=== PATIENT | male | born 1970 | race Caucasian/White ===

== ENCOUNTER 2023-12-18 16:16 | Outpatient (CLI) | payer OTHER, SELFPAY ==
[2023-12-18 17:04] LABS: Basophils # 0.1 K/mm3 (0-0.2); Basophils % 0.9 % (0.1-2.0); Eosinophils # 0.4 K/mm3 (0.0-0.4); Eosinophils % 3.7 % (0.1-12.0); Hematocrit 42.2 % (42.0-52.0); Hemoglobin 14.3 g/dL (14.1-18.0); Lymphocytes # 3.4 K/mm3 (0.7-4.5); Lymphocytes % 36.6 % (10-50); Mean Corpuscular HGB Conc 33.8 g/dL (31.8-35.4); Mean Corpuscular Hemoglobin 29.4 pg (27.0-31.2); Mean Corpuscular Volume 86.9 fl (80-94); Mean Platelet Volume 7.5 fl (7.4-10.4); Monocytes # 0.4 K/mm3 (0.1-1.0); Monocytes % 4.6 % (1.7-9.3); Neutrophils # 5.1 K/mm3 (1.8-7.8); Neutrophils % 54.3 % (37.0-80.0); Platelet Count 255 K/mm3 (142-424); Red Blood Count 4.86 M/mm3 (4.60-6.20); Red Cell Distribution Width 13.6 % (11.5-17.5); White Blood Count 9.3 K/mm3 (4.8-10.8)
[2023-12-18 17:21] LABS: Hemoglobin A1C 5.7 % (4.0-6.0)
[2023-12-18 17:55] LABS: Alanine Aminotransferase 28 U/L (12-78); Albumin Level 4.1 g/dl (3.5-5.0); Alkaline Phosphatase 108 U/L (38-126); Anion Gap 10.8 mEq/L (5-15); Aspartate Amino Transferase 32 U/L (17-59); Bilirubin,Direct 0.1 mg/dl (0.0-0.4); Bilirubin,Indirect 0.6 mg/dL (0.0-0.9); Bilirubin,Total 0.7 mg/dl (0.2-1.3); Bilirubin,Unconjugated 0.6 mg/dL (0.0-1.1); Blood Urea Nitrogen 18 mg/dl (9-20); Calcium 8.9 mg/dl (8.4-10.2); Carbon Dioxide 28 mmol/L (22.0-30.0); Chloride 106 mmol/L (98-107); Chol/HDL Ratio 6.2 (1-3.5); Cholesterol 203 mg/dl (140-200); Estimated Glomerular Filt Rate 64 ml/min (>60); GFR (African American) 77 ML/MIN (>60); Glucose 92 mg/dl (74-100); HDL Cholesterol 33 mg/dl (40-60); Magnesium 2.1 mg/dl (1.6-2.3); Potassium 3.8 mmoL/L (3.5-5.1); Sodium 141 mmol/L (136-145); Total Protein,Serum 6.9 g/dl (6.3-8.2); Triglycerides 243 mg/dl (30-150); VLDL Cholesterol 49 mg/dL (0-40)
[2023-12-18 18:08] LABS: Direct LDL Cholesterol 119.01 mg/dL (100-129)
[2023-12-18 18:13] LABS: Free T4 (Free Thyroxine) 0.86 ng/dl (0.78-2.19)
[2023-12-18 18:26] LABS: Thyroid Stimulating Hormone 1.77 uIU/mL (0.465-4.68)
== END 2023-12-18 23:59 ==
LOC: LAB 16:18
PROVIDERS: PCP Nurse Practitioner Family; Visit Provider Internal Medicine
DX: R07.9 Chest pain, unspecified (principal); R06.00 Dyspnea, unspecified; R42 Dizziness and giddiness; E78.5 Hyperlipidemia, unspecified; I10 Essential (primary) hypertension; G47.30 Sleep apnea, unspecified; E66.9 Obesity, unspecified; Z68.41 Body mass index [BMI] 40.0-44.9, adult
CPT/HCPCS: 36415; 80048; 80061; 80076; 83036; 83735; 84439; 84443; 85025; 93270

== ENCOUNTER 2024-01-13 11:43 | Outpatient (CLI) | payer OTHER, SELFPAY ==
--- NOTE | 2024-01-13 | CA_ITS ---
APPROVED REPORT Exam: Pharmacologic Technologist: Daniela Witt, Ht: 5 ft 11 in Wt: 314 lbs BSA: 2.55 m2 HR: 57 bpm BP: 141/82 mmHg Rhythm: NSR Medical History Medical History: HTN Medications: Losartan,,,,, HCTZ,,,,, SilDENAFIL,,,,, Allergies: No known drug allergies Cardiac Risk Factors: HTN Stress Test Details Test: LEXISCAN HR Resting HR: 58 bpm Max Heart Rate (APMHR): 168 bpm Max HR Achieved: 94 bpm Target HR (85% APMHR): 143 bpm % of APMHR: 56 Recovery HR: 72 bpm BP Resting BP: 141/82 mmHg Max BP: 146/75 mmHg Recovery BP: 146.0/75.0 mmHg ECG Resting ECG: Normal sinus rhythm Stress ECG: No significant ST changes Arrhythmia: None Clinical Exercise duration: 04:02 min Highest Stage Achieved: Stress ECG Conclusion Patient developed dyspnea and lightheadedness. Ectopy: None ST changes: None Conclusion: Unremarkable Lexiscan stress test. Myoview images reported separately. Test Summary REST 11:22 . . 58 . 141/ 82 . . Stage 1 01:00 . . 88 . . . . Stage 2 01:00 . . 83 . . . . Stage 3 01:00 . . 83 . 128/ 67 . . Stage 4 01:00 . . 75 . 135/ 75 . . Stage 4 01:02 . . 78 . 135/ 75 . Stop exercise at 04:02 RECOVERY 01:00 . . 71 . . . . RECOVERY 01:41 . . 78 . 146/ 75 . . Electronically signed by : Berna Degroot MD 01/14/2024 11:36:10
--- NOTE | 2024-01-13 11:44 | NM_ITS ---
APPROVED REPORT Exam: Nuclear Stress Test Indication: HTN, TOB USE, C.P., PALPATATIONS Patient Location: Outpatient Stress Tech: Daniela Witt NM Tech:Latha Toussaint, ARRT, RT (R)(N) Ht: 5 ft 10 in Wt: 315 lbs HR: 58 bpm BP: 141/82 mmHg BSA: 2.53 m2 TID: 1.35 BMI: 45.1 History: HTN, TOB USE, C.P., PALPATATIONS Procedure: Patient received 0.4 mg of intravenous Lexiscan, resting heart rate 58 bpm, resting blood pressure 141/82 mmHg, with Lexiscan maximum heart rate achieved was 94 bpm which is % of the maximum predicted heart rate and blood pressure was 146/75 mmHg. With Lexiscan, patient denied any complaint of chest pain. Cardiac Stress and Resting SPECT Images: Cardiac Stress and Resting SPECT images were obtained using technetium 99m Myoview 30.9 mCi stress and 10.70 mCi at rest. Resting and stress imaging in supine and prone positions demonstrate a medium sized, moderate, predominantly fixed perfusion defect in the basal to mid inferior LV wall. There is a region of reversibility towards the mid inferior LV wall. There is also increased transient ischemic dilatation ratio (TID 1.35), suggestive of possible multivessel disease or balanced ischemia. Gated imaging demonstrates mild reduction in global LV systolic function. There is moderate hypokinesis of the basal inferior LV wall. LVEF is calculated at 48%. Conclusion: Medium sized, moderate, predominantly fixed perfusion defect in the basal to mid inferior LV wall. There is a region of reversibility towards the mid inferior LV wall. There is also increased transient ischemic dilatation ratio (TID 1.35), suggestive of possible multivessel disease or balanced ischemia. Gated imaging demonstrates mild reduction in global LV systolic function. There is moderate hypokinesis of the basal inferior LV wall. LVEF is calculated at 48%. Electronically signed by : Berna Degroot MD 01/15/2024 13:07:48
--- NOTE | 2024-01-13 12:24 | CA_ITS ---
APPROVED REPORT EXAM: Comprehensive 2D, Doppler, and color-flow Echocardiogram Asset Protection Officer: Jeannie Pacheco RDCS Ht: 5 ft 11 in Wt: 314lbs BSA: 2.55 BP: 152/88 mmHg Indications: SOA, HTN, ELAINE M-Mode Dimensions RVDd 1.61 cm (0.9-2.6) LA Diam 4.44 cm (1.9-4.0) LVDd 6.46 cm (3.5-5.7) LVDs 4.16 cm (3.5-5.7) IVSd 1.01 cm (0.6-1.1) PWd 0.77 cm (0.6-1.1) EF (Teich) 63.90% FS 35.60% EDV (Teich) 213.00 mL ESV (Teich) 76.80 mL LV Diastology E Decel Time 210 (160-240 msec) E/A Ratio 1.0 Mitral Valve MV E Max Ryne. 63.0 (40-130 cm/s) MV A Velocity 60.0 (40-130 cm/s) E/A Ratio 1.04 MV PHT 62.0 ms Left Ventricle The left ventricle is normal size. The left ventricular systolic function is normal. The left ventricular ejection fraction is within the normal range. There is increased LV wall thickness. There is normal LV segmental wall motion. The left ventricular diastolic function is normal. LVEF is 55%. Right Ventricle Right ventricle is mildly dilated. Right ventricle is mildly hypokinetic. Atria The left atrium size is normal. The right atrium size is normal. There is no Doppler evidence of interatrial shunt. Aortic Valve The aortic valve opens well. There is no aortic valvular stenosis. No aortic regurgitation is present. Mitral Valve The mitral valve is normal in structure. No evidence of mitral valve stenosis. There is no mitral valve regurgitation noted. Tricuspid Valve The tricuspid valve leaflets are thin and pliable. Trace tricuspid regurgitation. There is insufficient TR jet to estimate RVSP. Pulmonic Valve The pulmonary valve is normal in structure. Trace pulmonic regurgitation. Great Vessels The aortic root is normal in size. The ascending aorta is normal in size. IVC is normal in size and collapses >50% with inspiration. Pericardium There is no pericardial effusion. Other Information Study Quality: Technically Difficult Conclusion Technically difficult study due to poor accoustic windows. Normal LV systolic function. Mild RV dilation with mild reduction in RV systolic function. No significant valvular stenosis or regurgitation. Electronically signed by : Berna Degroot MD 01/14/2024 23:39:41
[2024-01-13] MEDS: SODIUM CHLORIDE 0.9% 10ML SYR (RAD ONLY) 10 ML IV ×2 (13:52)
[2024-01-13] MEDS: ISOTOPE MYOVIEW (PER STUDY) 1 DOSE IV (13:52)
[2024-01-13] MEDS: REGADENOSON 0.4MG/5ML SYRINGE 0.400000000000000022 MG IV (13:52)
== END 2024-01-13 23:59 ==
LOC: RAD 11:44
PROVIDERS: PCP Nurse Practitioner Family; Visit Provider Internal Medicine
DX: R07.9 Chest pain, unspecified (principal); R06.00 Dyspnea, unspecified; R42 Dizziness and giddiness; E66.9 Obesity, unspecified; E78.5 Hyperlipidemia, unspecified; I10 Essential (primary) hypertension; G47.30 Sleep apnea, unspecified; Z68.41 Body mass index [BMI] 40.0-44.9, adult
CPT/HCPCS: 78452; 93017; 93018; 93306; A9502; J2785

== ENCOUNTER 2024-01-23 22:24 | Observation (INO) | payer OTHER, SELFPAY ==
[2024-01-23 22:42] VITALS: BP 160/81; PULSE 71; O2SAT 98
--- NOTE | 2024-01-23 22:48 | ECG_ITS ---
APPROVED REPORT Exam: Resting ECG HR:64 bpm ECG Measurements Heart Rate 64 AXES FL 157 P 61 QRSd 90 QRS 37 QT 390 T 40 QTc 400 Conclusion SINUS RHYTHM NORMAL ECG UNCONFIRMED REPORT Electronically signed by : ADEN LYONS, 01/24/2024 03:49:48
[2024-01-23 22:55] VITALS: BP 160/81; PULSE 71; RESP 16; O2SAT 96; BMI 43.7
[2024-01-23 23:01] VITALS: BP 133/65; PULSE 71; O2SAT 98
--- NOTE | 2024-01-23 23:03 | ED_ITS ---
Discharge Plan Disposition Patient Disposition: Admitted Clinical Impressions Clinical Impression: Chest pain Discharge ED Provider: Luis Alberto Blackwell General Adult HPI General Chief complaint: Recheck/Abnormal Lab/Rx Stated complaint: pressure in his head Time Seen by Provider: 01/23/24 23:02 Mode of Arrival: Ambulatory Source of Information: Patient Limitations: No Limitations Description of Symptoms (Recalled from ER Triage Doc. by RN): pt states he was notified by Dr. Welch's office today that he failed his chemical stress test from a few weeks ago. He saw his pcp in office who spoke with . The pt was instructed to come in for observation tonight so that could cath him first thing in the morning. pt denies any symptoms at this time. History of Present Illness HPI narrative: 53-year-old male with history of hypertension, obesity, hyperlipidemia presents for further evaluation. He reports that he was seen by cardiology about a month ago and recently had a stress test that he reports was abnormal. He had chest pain/fluttering earlier today, approximately 9 hours ago. He went to his PCP where an EKG was performed. Per patient, his PCP had a discussion with cardiology who recommended he be seen in the ED for evaluation. Patient currently reports that his chest pain has been gone for some time, he has no headache or any other symptoms. He denies any history of stents. Related Data Home Medications Medication Instructions Recorded Confirmed hydrochlorothiazide 25 mg tablet mg PO 12/18/23 12/18/23 losartan 50 mg tablet mg PO 12/18/23 12/18/23 sildenafil 50 mg tablet 50 mg PO DAILY PRN 12/18/23 12/18/23 Previous Rx's Medication Instructions Recorded metoprolol succinate 25 mg 25 mg PO QDAY #90 tabs 12/18/23 tablet,extended release 24 hr Allergies Allergy/AdvReac Type Severity Reaction Status Date / Time No Known Allergies Allergy Verified 12/18/23 15:56 [facility] Disclaimer: The information contained in this section may have been updated after the patient was seen, as this information can be updated by other users. Medical History (Updated 01/24/24 @ 00:31 by Luis Alberto Blackwell MD) Sleep apnea Deviated septum HTN (hypertension) Surgical History (Updated 12/18/23 @ 15:59 by Concepción Nolasco) History of hernia surgery H/O knee surgery H/O adenoidectomy Social History (Updated 12/18/23 @ 16:01 by Concepción Nolasco) Smoking Status: Never smoker second hand exposure: No alcohol intake: never substance use type: denies use current occupational status: employed Travel in the last 8 weeks: Inside the [place] ROS Obtained: Yes All systems reviewed & no additional complaints except as documented Physical Exam General General appearance: alert, in no apparent distress and obese Head Head exam: atraumatic and normocephalic Eye Eye exam: Present normal appearance, PERRL and EOMI ENT ENT exam: Present normal oropharynx and normal external ear exam Neck Neck exam: Present normal inspection and full ROM Chest Chest inspection: Present normal inspection and symmetric chest wall rise; Absent tenderness Respiratory Respiratory exam: Present normal lung sounds bilaterally; Absent respiratory distress Cardiovascular Cardiovascular exam: Present regular rate and normal rhythm Abdominal Exam Abdominal exam: Present soft; Absent distention, tenderness or guarding Extremities Exam Extremities exam: Present normal inspection; Absent edema or joint swelling Back Exam Back exam: Present normal inspection; Absent tenderness Neurological Exam Neurological exam: Present alert and oriented X3; Absent motor sensory deficit Psychiatric Psychiatric exam: Present normal affect and normal mood Skin Skin exam: Present warm, dry and normal color Lymphatic Lymphatic Findings: no adenopathy Medical Decision Making Medical Records Medical records reviewed: Yes I reviewed the patient's medical records. Hardeep Inquiry Pt receiving controlled substance: No Hardeep was queried for this patient: No Vital Signs: 01/23/24 22:42 01/23/24 22:55 01/23/24 23:01 Temperature Temperature Source Pulse Rate 71 71 Pulse Rate [Left] 71 Respiratory Rate 16 Blood Pressure 160/81 H 133/65 Blood Pressure [Right Arm] 160/81 H Blood Pressure Mean 110 87 Blood Pressure Mean [Right Arm] 107 Blood Pressure Source [Right Arm] Automatic Cuff Blood Pressure Position [Right Arm] Sitting 02 Sat by Pulse Oximetry 98 96 98 Oxygen Delivery Method Room Air 01/23/24 23:58 Temperature 98.4 F Temperature Source Oral Pulse Rate 73 Pulse Rate [Left] Respiratory Rate 16 Blood Pressure 149/82 H Blood Pressure [Right Arm] Blood Pressure Mean Blood Pressure Mean [Right Arm] Blood Pressure Source [Right Arm] Blood Pressure Position [Right Arm] 02 Sat by Pulse Oximetry Oxygen Delivery Method Lab Data Lab results reviewed: Yes I reviewed the patient's lab results. Lab Results 01/23/24 22:52: WBC 9.0, RBC 4.91, Hgb 14.0 L, Hct 43.1, MCV 87.7, MCH 28.6, MCHC 32.6, RDW 13.6, Plt Count 233, MPV 7.5, Neut % (Auto) 48.7, Lymph % (Auto) 38.7, [place] % (Auto) 5.3, Eos % (Auto) 5.4, Baso % (Auto) 1.9, Neut # (Auto) 4.4, Lymph # (Auto) 3.5, [place] # (Auto) 0.5, Eos # (Auto) 0.5 H, Baso # (Auto) 0.2, Sodium 141, Potassium 3.5, Chloride 108 H, Carbon Dioxide 32 H, Anion Gap 4.5 L, BUN 19, Creatinine 1.30 H, Estimated Creat Clear 71, Estimated GFR 58 L, Est GFR ( Amer) 70, Glucose 121 H, Calcium 9.3, Total Bilirubin 0.9, AST 39, ALT 31, Alkaline Phosphatase 90, Troponin I < 0.01, Total Protein 7.0, Albumin 4.0, Globulin 3.0, Albumin/Globulin Ratio 1.3 01/23/24 22:52 01/23/24 22:52 Orders (Tests/Meds): ORDERS Category Date Time Status Cardiology Consult [Consult to Cardiology] [CONS] Cons 01/23/24 23:44 Active Routine CXR --portable [XR chest portable] Stat Exams 01/23/24 23:10 Completed CBC w/Auto Diff [Complete Blood Count Auto Diff] Stat Lab 01/23/24 22:52 Completed CMP [Comprehensive Metabolic Panel] Stat Lab 01/23/24 22:52 Completed Troponin I Q3H Lab 01/23/24 22:52 Completed Troponin I Q3H Lab 01/24/24 02:15 Ordered HEART Score History (anamnesis): Slightly suspicious ECG: Normal Age: 45-65 years Risk factors: 3 or more risk factors Troponin: </= normal limit HEART Score: 3 Medical Decision Narrative: 53-year-old male with history of hypertension hyperlipidemia presents after he had chest pain earlier today, reported recent abnormal stress test, he was told to come to the ER earlier but did not initially. His chest pain has since resolved. History was obtained interactive discussion with patient, chart review. On arrival, patient is [afebrile, hemodynamically stable, satting appropriately, alert, oriented x4, GCS 15], moving all extremities spontaneously. Full physical exam performed and significant for no significant physical exam abnormalities. Differential includes but is not limited to ACS, angina, unstable angina, musculoskeletal chest pain. Workup initiated including CBC CMP chest x-ray troponin EKG. We did not give the patient aspirin as he had a normal EKG and is not actively having chest pain. On re-evaluation, patient [remains afebrile, HD stable.] Laboratory workup independently interpreted by me and significant for creatinine mildly elevated, stable from a month ago, no actionable electrolyte derangements, initial troponin undetectably low. Imaging independently interpreted by me and significant for clear lungs bilaterally without evidence of opacity. See radiology read for full review of final results. EKG independently interpreted by me at 11 PM and significant for normal sinus rhythm, rate of 64, no concerning ST or T wave changes. No evidence of arrhythmia. I had an interactive discussion with cardiology on-call who recommended admission for further evaluation of chest pain. I had an interactive discussion with the hospitalist on-call who accepted the patient for admission. Procedures Risk/Benefits of Procedure(s) Were Explained: Yes Critical Care Critical Care Time Critical Care Time: No
--- NOTE | 2024-01-23 23:10 | XR_ITS ---
PROCEDURE INFORMATION: Exam: XR Chest Exam date and time: 01/23/2024 11:11 PM Age: 53 years old Clinical indication: Pain; Chest pressure; Additional info: Cp TECHNIQUE: Imaging protocol: Radiologic exam of the chest. Views: 1 view. COMPARISON: No relevant prior studies available. FINDINGS: Lungs: Normal. Pleural spaces: Normal. No pleural effusion. No pneumothorax. Heart/Mediastinum: Normal. No cardiomegaly. Bones/joints: Unremarkable. IMPRESSION: No acute findings.
[2024-01-23 23:18] LABS: Basophils # 0.2 K/mm3 (0-0.2); Basophils % 1.9 % (0.1-2.0); Eosinophils # 0.5 K/mm3 (0.0-0.4); Eosinophils % 5.4 % (0.1-12.0); Hematocrit 43.1 % (42.0-52.0); Lymphocytes # 3.5 K/mm3 (0.7-4.5); Lymphocytes % 38.7 % (10-50); Mean Corpuscular HGB Conc 32.6 g/dL (31.8-35.4); Mean Corpuscular Hemoglobin 28.6 pg (27.0-31.2); Mean Corpuscular Volume 87.7 fl (80-94); Mean Platelet Volume 7.5 fl (7.4-10.4); Monocytes # 0.5 K/mm3 (0.1-1.0); Monocytes % 5.3 % (1.7-9.3); Neutrophils # 4.4 K/mm3 (1.8-7.8); Neutrophils % 48.7 % (37.0-80.0); Platelet Count 233 K/mm3 (142-424); Red Blood Count 4.91 M/mm3 (4.60-6.20); Red Cell Distribution Width 13.6 % (11.5-17.5)
[2024-01-23 23:20] LABS: Chloride 108 mmol/L (98-107); Potassium 3.5 mmoL/L (3.5-5.1); Sodium 141 mmol/L (136-145)
[2024-01-23 23:23] LABS: Alanine Aminotransferase 31 U/L (12-78); Albumin/Globulin Ratio 1.3 (1.1-1.8); Alkaline Phosphatase 90 U/L (38-126); Anion Gap 4.5 mEq/L (5-15); Aspartate Amino Transferase 39 U/L (17-59); Bilirubin,Total 0.9 mg/dl (0.2-1.3); Blood Urea Nitrogen 19 mg/dl (9-20); Carbon Dioxide 32 mmol/L (22.0-30.0); Creatinine Clearance Estimated 71 mL/min (50-200); Estimated Glomerular Filt Rate 58 ml/min (>60); GFR (African American) 70 ML/MIN (>60)
[2024-01-23 23:24] LABS: Calcium 9.3 mg/dl (8.4-10.2); Glucose 121 mg/dl (74-100)
[2024-01-23 23:37] LABS: Troponin I < 0.01 ng/ml (0.00-0.034)
--- NOTE | 2024-01-23 23:43 | PC.NURSE ---
on phone with at this time
--- NOTE | 2024-01-23 23:50 | PC.NURSE ---
notified house wirer helper of admission
--- NOTE | 2024-01-23 23:51 | PC.NURSE ---
Admitting notified for OBS, 214, Chest Pain, Hospitalist
[2024-01-23 23:58] VITALS: BP 149/82; PULSE 73; RESP 16; TEMP 36.9; O2SAT 96
[2024-01-24] VITALS (21 sets, daily range): BP systolic 114–171; BP diastolic 59–95; PULSE 42–70; RESP 17–20; TEMP 36.4–36.8; O2SAT 95–100; BMI 43.2
--- NOTE | 2024-01-24 00:19 | PC.NURSE ---
Patient arrived to floor via wheelchair from ED at 00:08.
--- NOTE | 2024-01-24 01:05 | P.HP_ITS ---
History of Present Illness *Admission Date: 01/24/24 *Reason for visit:: Palpitations *History of present illness: This is a 53-year-old male with past medical history of obesity, hypertension, hyperlipidemia who presents emergency department today with complaints of palpitations. He presented to his PCP today with these complaints who spoke with Dr. Welch and stated that he should come to the hospital for arteriogram in a.m. He states that he was having palpitations about 9 hours ago with mild chest pain. At time of arrival to the emergency department he states his chest pain was gone. Patient self-reports an abnormal stress test approximately 1 month ago with cardiology. He denies diaphoresis, nausea associated with this pain. Denies any other history of cardiac disease. Emergency department workup mostly unremarkable. Troponin negative. Creatinine appears to be at baseline with a creatinine of 1.3 with a prior history of 1.2. EKG without ischemia. Given his complaints and heart score risk, he will be admitted to hospital service. [facility] Disclaimer: The information contained in this section may have been updated after the patient was seen, as this information can be updated by other users. Medical History (Updated 01/24/24 @ 09:56 by Emma Suazo APRN) HLD (hyperlipidemia) Abnormal cardiovascular stress test Unstable angina Sleep apnea Deviated septum HTN (hypertension) Surgical History History of hernia surgery H/O knee surgery H/O adenoidectomy Social History (Updated 01/24/24 @ 00:51 by Sally Tamayo RN) Smoking Status: Former smoker second hand exposure: No alcohol intake: never substance use type: denies use current occupational status: employed Travel in the last 8 weeks: None Review of Systems Constitutional Constitutional: Reports as per HPI Eyes Eyes: Reports as per HPI ENT Ears, Nose, Mouth, and Throat: Reports as per HPI *Cardiovascular Cardiovascular: Reports as per HPI *Respiratory Respiratory: Reports as per HPI *Gastrointestinal Gastrointestinal: Reports as per HPI *Genitourinary Genitourinary: Reports as per HPI *Musculoskeletal Musculoskeletal: Reports as per HPI Integumentary/Breasts Skin/Breast: Reports as per HPI *Neurologic Neurologic: Reports as per HPI Psychiatric Psychiatric: Reports as per HPI Endocrine Endocrine: Reports as per HPI Hematologic/Lymphatic Hematologic/Lymphatic: Reports as per HPI Allergic/Immunologic Allergic/Immunologic: Reports as per HPI Meds Home Medications and Allergies Home Medications Medication Instructions Recorded Confirmed Type losartan 50 mg tablet 50 mg PO DAILY 12/18/23 01/24/24 History sildenafil 50 mg tablet 50 mg PO NEEDED PRN Sexual 12/18/23 01/24/24 History Activity aspirin 81 mg chewable tablet 81 mg PO DAILY 30 days #30 tabs 01/24/24 Rx atorvastatin 40 mg tablet 40 mg PO HS 30 days #30 tabs 01/24/24 Rx furosemide 80 mg tablet 80 mg PO DAILY 30 days #30 tabs 01/24/24 Rx metoprolol succinate 25 mg 25 mg PO DAILY 01/24/24 01/24/24 History tablet,extended release 24 hr spironolactone 50 mg tablet 100 mg (2 x 50 mg) PO DAILY 30 01/24/24 Rx days #60 tabs New Prescriptions to Start Prescriptions: aspirin Ryan,Cesar atorvastatin Ryan,Cesar furosemide Ryan,Cesar spironolactone Ryan,Cesar Allergies Allergy/AdvReac Type Severity Reaction Status Date / Time Poultry Allergy Severe Swelling Verified 01/24/24 00:40 of Lip/Tongue/Throat Exam Data for Last 24 hours Vital signs and Labs for Last 24 Hours: Temp Pulse Resp BP Pulse Ox O2 Del Method 98.4 F 73 16 149/82 H 98 Room Air 01/23/24 23:58 01/23/24 23:58 01/23/24 23:58 01/23/24 23:58 01/23/24 23:01 01/23/24 22:55 Laboratory Results - last 24 hr 01/23/24 22:52: WBC 9.0, RBC 4.91, Hgb 14.0 L, Hct 43.1, MCV 87.7, MCH 28.6, MCHC 32.6, RDW 13.6, Plt Count 233, MPV 7.5, Neut % (Auto) 48.7, Lymph % (Auto) 38.7, [place] % (Auto) 5.3, Eos % (Auto) 5.4, Baso % (Auto) 1.9, Neut # (Auto) 4.4, Lymph # (Auto) 3.5, [place] # (Auto) 0.5, Eos # (Auto) 0.5 H, Baso # (Auto) 0.2, Sodium 141, Potassium 3.5, Chloride 108 H, Carbon Dioxide 32 H, Anion Gap 4.5 L, BUN 19, Creatinine 1.30 H, Estimated Creat Clear 71, Estimated GFR 58 L, Est GFR ( Amer) 70, Glucose 121 H, Calcium 9.3, Total Bilirubin 0.9, AST 39, ALT 31, Alkaline Phosphatase 90, Troponin I < 0.01, Total Protein 7.0, Albumin 4.0, Globulin 3.0, Albumin/Globulin Ratio 1.3 I & O for Last 24 hours: Intake & Output 01/21/24 01/22/24 01/23/24 01/24/24 23:59 23:59 23:59 23:59 Weight 142.428 kg Constitutional Constitutional: obese *Routine HEENT Exam Head: Present normocephalic Eye: Present EOMI and PERRL ENT: Present mucous membranes moist *Routine Neck Exam Neck: Present supple; Absent lymphadenopathy *Routine Respiratory Exam Respiratory: Present CTA bilaterally *Routine Cardiovascular Exam Cardiovascular: Present RRR *Routine Abdominal Exam Abdominal: Present soft and normoactive bowel sounds; Absent tenderness *Routine Rectal Exam Rectal:: deferred *Routine Genitalia Exam Genitalia:: deferred *Routine Extremities Exam Extremities: Absent cyanosis, clubbing or edema *Routine Skin Exam Skin: Present warm; Absent rash *Routine Neurological Exam Neurological: Present alert and oriented X3 Assessment and Plan *Assessment and plan (1) Chest pain: Status: Acute Qualifiers: Chest pain type: unspecified Qualified Code(s): R07.9 - Chest pain, unspecified Category: Medical Code(s): R07.9 - Chest pain, unspecified (2) HLD (hyperlipidemia): Status: Acute Qualifiers: Hyperlipidemia type: unspecified Qualified Code(s): E78.5 - Hy perlipidemia, unspecified Category: Medical Code(s): E78.5 - Hyperlipidemia, unspecified (3) Obesity: Status: Acute Qualifiers: Body mass index: BMI 40.0-44.9 Obesity classification: adult class 3 (BMI >= 40) Obesity type: due to excess calories Serious obesity comorbidity presence: with serious comorbidity Qualified Code(s): E66.01 - Morbid (severe) obesity due to excess calories; Z68.41 - Body mass index [BMI] 40.0-44.9, adult Category: Medical Code(s): E66.9 - Obesity, unspecified (4) HTN (hypertension): Status: Acute Qualifiers: Hypertension type: primary hypertension Qualified Code(s): I10 - Essential (primary) hypertension Category: Medical Code(s): I10 - Essential (primary) hypertension Plan Presented with symptoms concerning for unstable angina. Case discussed with ER, request admission for cardiac eval and possible heart cath. Medicine agreed to admit for further management. Problems addressed as follows: # Chest pain #Hyperlipidemia #Hypertension # Obesity Cardiology consulted, Dr. Welch, appreciate recommendations N.p.o. after midnight Continue daily aspirin Continue home losartan Continue home metoprolol Home hydrochlorothiazide A1c and lipid panel pending Symptomatic and supportive care Obesity complicates all aspects of care DVT PPx Lovenox SCDs Rounded on patient after nurse practitioner. Personally examined and interviewed patient. Agree with exam findings and care plan as documented.
--- NOTE | 2024-01-24 02:22 | PC.NURSE ---
Lab attempted to get blood for troponin, Pt refused and said he didnt want to be stuck again, this nurse attempted to pull sample from IV, IV will not pull back blood.
--- NOTE | 2024-01-24 06:10 | PC.NURSE ---
pt is alert and oriented x4 and currently tolerating own c-pap. Pt has slept well and remains on telemetry with a NSR. No acute changes at this time.
[2024-01-24 06:38] LABS: Chloride 108 mmol/L (98-107); Potassium 3.7 mmoL/L (3.5-5.1); Sodium 140 mmol/L (136-145)
[2024-01-24 06:40] LABS: Basophils # 0.1 K/mm3 (0-0.2); Basophils % 1.6 % (0.1-2.0); Eosinophils # 0.5 K/mm3 (0.0-0.4); Eosinophils % 5.9 % (0.1-12.0); Hematocrit 41.3 % (42.0-52.0); Hemoglobin 13.5 g/dL (14.1-18.0); Lymphocytes # 3.1 K/mm3 (0.7-4.5); Lymphocytes % 39.3 % (10-50); Mean Corpuscular HGB Conc 32.8 g/dL (31.8-35.4); Mean Corpuscular Hemoglobin 28.9 pg (27.0-31.2); Mean Corpuscular Volume 88.2 fl (80-94); Mean Platelet Volume 8.1 fl (7.4-10.4); Monocytes # 0.5 K/mm3 (0.1-1.0); Monocytes % 5.9 % (1.7-9.3); Neutrophils # 3.7 K/mm3 (1.8-7.8); Neutrophils % 47.3 % (37.0-80.0); Platelet Count 240 K/mm3 (142-424); Red Blood Count 4.68 M/mm3 (4.60-6.20); Red Cell Distribution Width 13.8 % (11.5-17.5); White Blood Count 7.9 K/mm3 (4.8-10.8)
[2024-01-24 06:41] LABS: Anion Gap 4.7 mEq/L (5-15); Blood Urea Nitrogen 18 mg/dl (9-20); Carbon Dioxide 31 mmol/L (22.0-30.0); Creatinine Clearance Estimated 74 mL/min (50-200); Estimated Glomerular Filt Rate 64 ml/min (>60); GFR (African American) 77 ML/MIN (>60)
[2024-01-24 06:42] LABS: Calcium 8.8 mg/dl (8.4-10.2); Chol/HDL Ratio 6.6 (1-3.5); Cholesterol 185 mg/dl (140-200); Glucose 116 mg/dl (74-100); HDL Cholesterol 28 mg/dl (40-60); Triglycerides 138 mg/dl (30-150); VLDL Cholesterol 28 mg/dL (0-40)
[2024-01-24 06:53] LABS: Direct LDL Cholesterol 106.58 mg/dL (100-129)
--- NOTE | 2024-01-24 07:12 | IR_ITS ---
APPROVED REPORT Patient Location: Inpatient Lead Performance Support Analyst: JATIN Gardiner RT (R) PROCEDURES Left heart catheterization Left ventriculogram Selective coronary angiogram INDICATION Unstable angina Informed consent was obtained prior to the procedure. COMPLICATIONS NONE Estimated Blood Loss: LESS THAN 10 ML TECHNIQUE One percent lidocaine used to anesthetize the right anterior aspect of the wrist. The right radial artery was accessed via the Seldinger technique. A 6 [place] sheath was placed in the right radial artery. 2.5 mg of Verapamil, 800 mcg of nitroglycerin, 1mg Lidocaine and 5000 U Heparin were given through the arterial sheath. The papa catheter was also used to perform left heart catheterization, left ventriculogram and selective coronary angiogram. At the end of the procedure the sheath was removed good hemostasis was achieved using Traclet band, patient was transferred to the postop holding area in stable condition. ANGIOGRAPHIC RESULTS The left main artery Normal The left anterior descending artery Is an unusually small caliber vessel throughout. Proximally the vessel is normal. In the mid to distal segment there is a 70% eccentric stenosis where the caliber is 2 mm in diameter. The LAD supplies a small amount of territory distal to this stenosis and does not reach the apex The circumflex artery Nondominant large and normal The right coronary artery Large dominant normal The CHOI ventriculogram reveals Normal 65% The left ventricular end-diastolic pressure Severely elevated at 40 mmHg IMPRESSION 70% stenosis in a small 2 mm distal LAD which supplies a small amount of myocardium distal to the stenosis which is not clinically appropriate for percutaneous or surgical revascularization based on the small amount of distal myocardium Normal ejection fraction Severely elevated LVEDP which is almost certain the etiology for patient's symptoms PLAN 1. Recommend Lasix 80 mg daily plus Aldactone 100 mg daily with plans to adjust as needed 2. Continue with CPAP 3. Recommend weight loss 4. LDL less than 55 to achieve that high intensity statin 5. Physical therapy Electronically signed by : Fidel Welch MD 01/24/2024 14:37:35
[2024-01-24 07:46] LABS: Troponin I < 0.01 ng/ml (0.00-0.034)
--- NOTE | 2024-01-24 07:52 | HMH.PHAINT1 ---
Pharmacy Intervention Comments: MEDICATION RECONCILIATION COMPLETED ON PATIENT USING EXTERNAL FILL HISTORY FROM PHARMACY AND LIST FROM CARDIOLOGY OFFICE. -CALLIE WATTS, SHALAD
[2024-01-24] MEDS: ENOXAPARIN 40MG/0.4ML SYRINGE 40 MG SQ (08:50)
[2024-01-24] MEDS: ASPIRIN 81MG CHEWABLE TABLET 81 MG PO (09:34)
[2024-01-24] MEDS: METOPROLOL SUCCINATE XL 25MG TABLET 25 MG PO (09:48)
[2024-01-24] MEDS: hydroCHLOROthiazide 25MG TABLET 25 MG PO (09:48)
[2024-01-24] MEDS: IRBESARTAN 75MG TABLET 75 MG PO (09:48)
--- NOTE | 2024-01-24 09:51 | EXP.CARD.CON ---
History of Present Illness History of Present Illness Consult date: 01/24/24 Requesting physician: Cesar Davis Consult reason: chest pain Chief complaint: chest pain History of present illness: This is a 53-year-old white gentleman who presented to the emergency department with complaints of chest pain and palpitations. The patient reports that he while he was at work yesterday he had sudden onset of chest pain. He describes this as a tightness in the right side of his chest. It did not radiate. It was associated with severe palpitations, dizziness, shortness of breath and diaphoresis. He states that he just did not feel well. He went to see his primary care provider and when he got to her office she called cardiology and stated that the patient was having chest pain and appeared diaphoretic and Dr. Coronel recommended that the patient go to the emergency department. The patient recently had an abnormal stress test and was having unstable angina. This morning he states that he is feeling better. He denies any chest pain or pressure currently. He denies any shortness of breath or edema. He denies any fever, chills, nausea, vomiting, diarrhea, PND or orthopnea. The patient did rule out for an OR. [facility] Disclaimer: The information contained in this section may have been updated after the patient was seen, as this information can be updated by other users. Medical History (Updated 01/24/24 @ 09:56 by Emma Suazo APRN) HLD (hyperlipidemia) Abnormal cardiovascular stress test Unstable angina Sleep apnea Deviated septum HTN (hypertension) Surgical History History of hernia surgery H/O knee surgery H/O adenoidectomy Social History (Updated 01/24/24 @ 00:51 by Sally Tamayo RN) Smoking Status: Former smoker second hand exposure: No alcohol intake: never substance use type: denies use current occupational status: employed Travel in the last 8 weeks: None Review of Systems Review of Systems Review of systems:: pertinent systems reviewed and negative unless documented below Constitutional Constitutional: Reports system reviewed and no additional complaints, except as documented Eyes Eyes: Reports system reviewed and no additional complaints, except as documented ENT Ears, Nose, Mouth, and Throat: Reports system reviewed and no additional complaints, except as documented *Cardiovascular Cardiovascular: Reports system reviewed and no additional complaints, except as documented, Reports chest pain, Reports chest pain at rest, Reports chest pain with activity, Reports diaphoresis, Reports dyspnea on exertion, Reports lightheadedness, Reports palpitations, Denies radiating jaw, neck or arm pain and Reports rapid heart rate *Respiratory Respiratory: Reports system reviewed and no additional complaints, except as documented and Reports dyspnea on exertion *Gastrointestinal Gastrointestinal: Reports system reviewed and no additional complaints, except as documented *Genitourinary Genitourinary: Reports system reviewed and no additional complaints, except as documented *Musculoskeletal Musculoskeletal: Reports system reviewed and no additional complaints, except as documented Integumentary/Breasts Skin/Breast: Reports system reviewed and no additional complaints, except as documented *Neurologic Neurologic: Reports system reviewed and no additional complaints, except as documented Psychiatric Psychiatric: Reports system reviewed and no additional complaints, except as documented Endocrine Endocrine: Reports system reviewed and no additional complaints, except as documented and Reports palpitations Hematologic/Lymphatic Hematologic/Lymphatic: Reports system reviewed and no additional complaints, except as documented Allergic/Immunologic Allergic/Immunologic: Reports system reviewed and no additional complaints, except as documented Exam Data for Last 24 hours Vital signs and Labs for Last 24 Hours: Temp Pulse Resp BP Pulse Ox O2 Del Method 97.6 F 65 20 145/91 H 97 Room Air 01/24/24 07:56 01/24/24 08:21 01/24/24 07:56 01/24/24 07:56 01/24/24 07:56 01/24/24 07:56 Laboratory Results - last 24 hr 01/23/24 22:52: WBC 9.0, RBC 4.91, Hgb 14.0 L, Hct 43.1, MCV 87.7, MCH 28.6, MCHC 32.6, RDW 13.6, Plt Count 233, MPV 7.5, Neut % (Auto) 48.7, Lymph % (Auto) 38.7, [place] % (Auto) 5.3, Eos % (Auto) 5.4, Baso % (Auto) 1.9, Neut # (Auto) 4.4, Lymph # (Auto) 3.5, [place] # (Auto) 0.5, Eos # (Auto) 0.5 H, Baso # (Auto) 0.2, Sodium 141, Potassium 3.5, Chloride 108 H, Carbon Dioxide 32 H, Anion Gap 4.5 L, BUN 19, Creatinine 1.30 H, Estimated Creat Clear 71, Estimated GFR 58 L, Est GFR ( Amer) 70, Glucose 121 H, Calcium 9.3, Total Bilirubin 0.9, AST 39, ALT 31, Alkaline Phosphatase 90, Troponin I < 0.01, Total Protein 7.0, Albumin 4.0, Globulin 3.0, Albumin/Globulin Ratio 1.3 01/24/24 05:48: WBC 7.9, RBC 4.68, Hgb 13.5 L, Hct 41.3 L, MCV 88.2, MCH 28.9, MCHC 32.8, RDW 13.8, Plt Count 240, MPV 8.1, Neut % (Auto) 47.3, Lymph % (Auto) 39.3, [place] % (Auto) 5.9, Eos % (Auto) 5.9, Baso % (Auto) 1.6, Neut # (Auto) 3.7, Lymph # (Auto) 3.1, [place] # (Auto) 0.5, Eos # (Auto) 0.5 H, Baso # (Auto) 0.1, Sodium 140, Potassium 3.7, Chloride 108 H, Carbon Dioxide 31 H, Anion Gap 4.7 L, BUN 18, Creatinine 1.20, Estimated Creat Clear 74, Estimated GFR 64, Est GFR ( Amer) 77, Glucose 116 H, Hemoglobin A1c 6.0, Calcium 8.8, Troponin I < 0.01, Triglycerides 138, Cholesterol 185, LDL Cholesterol Direct 106.58, VLDL Cholesterol 28, HDL Cholesterol 28 L, Cholesterol/HDL Ratio 6.6 H I & O for Last 24 hours: Intake & Output 01/21/24 01/22/24 01/23/24 01/24/24 23:59 23:59 23:59 23:59 Intake Total 0 / 0 Output Total 0 / 0 Balance 0 / 0 Weight 314 lb 308 lb 9 oz Constitutional Constitutional: no acute distress and morbidly obese *Routine HEENT Exam Head: Present normocephalic and atraumatic ENT: Present mucous membranes moist *Routine Neck Exam Neck: Present supple, full ROM and normal carotid upstroke; Absent JVD, carotid bruit or lymphadenopathy *Routine Respiratory Exam Respiratory: Present CTA bilaterally, normal respiratory effort, able to speak in complete sentences and symmetric chest movement *Routine Cardiovascular Exam Cardiovascular: Present RRR, Normal S1 and Normal S2; Absent murmur or gallop *Routine Abdominal Exam Abdominal: Present soft and normoactive bowel sounds; Absent tenderness, distended or organomegaly *Routine Extremities Exam Extremities: Present full ROM, pulses intact and normal capillary refill; Absent cyanosis, clubbing or edema *Routine Skin Exam Skin: Present intact and warm; Absent erythema *Routine Neurological Exam Neurological: Present alert, oriented X3 and CN II-XII intact; Absent sensory deficit or motor deficit Routine Psychiatric Exam Psychiatric: Present normal affect Meds Home Medications and Allergies Home Medications Medication Instructions Recorded Confirmed Type hydrochlorothiazide 25 mg tablet 25 mg PO DAILY 12/18/23 01/24/24 History losartan 50 mg tablet 50 mg PO DAILY 12/18/23 01/24/24 History sildenafil 50 mg tablet 50 mg PO NEEDED PRN Sexual 12/18/23 01/24/24 History Activity metoprolol succinate 25 mg 25 mg PO DAILY 01/24/24 01/24/24 History tablet,extended release 24 hr New Prescriptions to Start Prescriptions: Allergies Allergy/AdvReac Type Severity Reaction Status Date / Time Poultry Allergy Severe Swelling Verified 01/24/24 00:40 of Lip/Tongue/Throat Assessment and Plan *Assessment and plan (1) Unstable angina: Status: Acute Category: Medical Code(s): I20.0 - Unstable angina (2) Abnormal cardiovascular stress test: Status: Acute Category: Medical Code(s): R94.39 - Abnormal result of other cardiovascular function study (3) Dyspnea: Status: Acute Qualifiers: Dyspnea type: dyspnea on exertion Qualified Code(s): R06.09 - Other forms of dyspnea Category: Medical Code(s): R06.00 - Dyspnea, unspecified (4) HTN (hypertension): Status: Acute Qualifiers: Hypertension type: primary hypertension Qualified Code(s): I10 - Essential (primary) hypertension Category: Medical Code(s): I10 - Essential (primary) hypertension (5) HLD (hyperlipidemia): Status: Acute Qualifiers: Hyperlipidemia type: unspecified Qualified Code(s): E78.5 - Hyperlipidemia, unspecified Category: Medical Code(s): E78.5 - Hyperlipidemia, unspecified (6) Sleep apnea: Status: Acute Qualifiers: Sleep apnea type: unspecified type Qualified Code(s): G47.30 - Sleep apnea, unspecified Category: Medical Code(s): G47.30 - Sleep apnea, unspecified Plan Plan: 1. The patient was admitted to the hospital with unstable angina. He did rule out for an OR. The patient had recent Myoview stress testing which showed medium sized, moderate, predominantly fixed perfusion defect in the basal to mid inferior LV wall. There is a region of reversibility towards the mid inferior LV wall. There is also increased transient ischemic dilatation with a 3 times daily ratio of 1.35 suggestive of possible multivessel disease or balanced ischemia. Given the patient's angina and known abnormal stress test, we will plan to proceed with left cardiac catheterization today to evaluate for coronary artery disease. 2. The patient has been educated the risk and benefits of proceeding with left cardiac catheterization. The patient verbalized understanding and is agreeable in proceeding with the procedure. 3. The patient will be n.p.o. in preparation for left cardiac catheterization. 4. His blood pressure is slightly elevated this morning. Will restart his metoprolol, losartan and hydrochlorothiazide. 5. Start aspirin 81 mg daily. 6. His LDL goal is less than 55. His LDL is 106. Will start him on Lipitor 40 mg nightly. 7. The patient was having palpitations and racing of the heart yesterday. His telemetry has been unremarkable. On discharge we can place a 2-week event monitor. 8. Further recommendations will be made pending the patient's response to treatment and the results of his left cardiac catheterization today. Thank you for the opportunity to help participate in the care of this patient. All recommendations and orders are per Dr. Degroot. AMB Pre-cath Criteria Pre-cath considerations: Clinical evaluation and indication for coronary angiography includes:: suspected CAD, new onset angina <= 2 months and worsening angina Patient is describing chest pain symtom as:: atypical angina Clinical risk factors:: HTN, HLD, abnormal stress test, angina How many antianginals is the patient taking?: 1 Patient is taking:: beta maryuri Risks and benefits:: We will plan to proceed with LHC/coronary angiography with right radial access. The patient has been educated on the risks and benefits of proceeding with LHC/coronary angiography with right radial access. The patient verbalized understanding and is agreeable in proceeding with the procedure.
[2024-01-24] MEDS: NITROGLYCERIN 800MCG/8ML SYR (CATH LAB) 800 MCG IA (13:51)
[2024-01-24] MEDS: diphenhydrAMINE 50MG/ML VIAL 50 MG IV (13:51)
[2024-01-24] MEDS: VERAPAMIL 2.5MG/ML 2ML VIAL 2.5 MG IV (13:51)
[2024-01-24] MEDS: 0.9 % SODIUM CHLORIDE 500 ML 25 ML IV (13:52)
[2024-01-24] MEDS: HEPARIN 1,000 UNITS/500ML NS (CATH LAB) 3000 UNIT IV (13:52)
[2024-01-24] MEDS: LIDOCAINE 1% 10ML MDV 20 ML IJ (13:52)
[2024-01-24] MEDS: HEPARIN 1,000 UNITS/ML 10ML VIAL (CATH LAB) 10000 UNIT IV (13:52)
[2024-01-24] MEDS: MIDAZOLAM HCL 1MG/1ML 5ML VIAL 1 MG IV (14:25)
[2024-01-24] MEDS: FENTANYL 100MCG/2ML VIAL 50 MCG IV (14:26)
[2024-01-24] MEDS: IOPAMIDOL-370 (76%);100ML BOTTLE 50 ML IV (14:44)
--- NOTE | 2024-01-24 15:20 | P.DS_ITS ---
General Admission date:: 01/24/24 Discharge date: 01/24/24 HPI HPI HPI: This is a 53-year-old male with past medical history of obesity, hypertension, hyperlipidemia who presents emergency department today with complaints of palpitations. He presented to his PCP today with these complaints who spoke with Dr. Welch and stated that he should come to the hospital for arteriogram in a.m. He states that he was having palpitations about 9 hours ago with mild chest pain. At time of arrival to the emergency department he states his chest pain was gone. Patient self-reports an abnormal stress test approximately 1 month ago with cardiology. He denies diaphoresis, nausea associated with this pain. Denies any other history of cardiac disease. Emergency department workup mostly unremarkable. Troponin negative. Creatinine appears to be at baseline with a creatinine of 1.3 with a prior history of 1.2. EKG without ischemia. Given his complaints and heart score risk, he will be admitted to [facility]. Hospital Course Hospital Course Hospital Course: Presented with symptoms concerning for unstable angina. Case discussed with ER, request admission for cardiac eval and possible heart cath. Medicine agreed to admit for further management. Monitored overnight. Taken for left heart cath. Small lesion that was too small to intervene on. Will medically manage. Stable to discharge home. Problems addressed as follows: # Chest pain #Hyperlipidemia #Hypertension # Obesity Admitted for chest pain. Cardiology was consulted and evaluated patient. Taken for left heart cath findings as follows: 70% stenosis in a small 2 mm distal LAD which supplies a small amount of myocardium distal to the stenosis which is not clinically appropriate for percutaneous or surgical revascularization based on the small amount of distal myocardium Normal ejection fraction Severely elevated LVEDP which is almost certain the etiology for patient's symptoms Recommendations made to medically manage his symptoms. Will continue Lasix and Aldactone at discharge. Lasix 80 mg orally, Aldactone 100 mg orally. Continue CPAP. Weight loss ended. Continue hide statin. Also continue asked Plavix at discharge. Plan for close follow-up with cardiology for further management. A1c 6 during admission. LDL of 106. Continue losartan 50 mg daily, metoprolol succinate 25 mg daily Exam Data for Last 24 hours Vital signs and Labs for Last 24 Hours: Temp Pulse Resp BP Pulse Ox O2 Del Method 98.1 F 42 L 18 164/83 H 96 Room Air 01/24/24 11:56 01/24/24 15:05 04/12/24 15:05 01/24/24 15:05 01/24/24 15:05 01/24/24 14:40 Laboratory Results - last 24 hr 01/23/24 22:52: WBC 9.0, RBC 4.91, Hgb 14.0 L, Hct 43.1, MCV 87.7, MCH 28.6, MCHC 32.6, RDW 13.6, Plt Count 233, MPV 7.5, Neut % (Auto) 48.7, Lymph % (Auto) 38.7, [place] % (Auto) 5.3, Eos % (Auto) 5.4, Baso % (Auto) 1.9, Neut # (Auto) 4.4, Lymph # (Auto) 3.5, [place] # (Auto) 0.5, Eos # (Auto) 0.5 H, Baso # (Auto) 0.2, Sodium 141, Potassium 3.5, Chloride 108 H, Carbon Dioxide 32 H, Anion Gap 4.5 L, BUN 19, Creatinine 1.30 H, Estimated Creat Clear 71, Estimated GFR 58 L, Est GFR ( Amer) 70, Glucose 121 H, Calcium 9.3, Total Bilirubin 0.9, AST 39, ALT 31, Alkaline Phosphatase 90, Troponin I < 0.01, Total Protein 7.0, Albumin 4.0, Globulin 3.0, Albumin/Globulin Ratio 1.3 01/24/24 05:48: WBC 7.9, RBC 4.68, Hgb 13.5 L, Hct 41.3 L, MCV 88.2, MCH 28.9, MCHC 32.8, RDW 13.8, Plt Count 240, MPV 8.1, Neut % (Auto) 47.3, Lymph % (Auto) 39.3, [place] % (Auto) 5.9, Eos % (Auto) 5.9, Baso % (Auto) 1.6, Neut # (Auto) 3.7, Lymph # (Auto) 3.1, [place] # (Auto) 0.5, Eos # (Auto) 0.5 H, Baso # (Auto) 0.1, Sodium 140, Potassium 3.7, Chloride 108 H, Carbon Dioxide 31 H, Anion Gap 4.7 L, BUN 18, Creatinine 1.20, Estimated Creat Clear 74, Estimated GFR 64, Est GFR ( Amer) 77, Glucose 116 H, Hemoglobin A1c 6.0, Calcium 8.8, Troponin I < 0.01, Triglycerides 138, Cholesterol 185, LDL Cholesterol Direct 106.58, VLDL Cholesterol 28, HDL Cholesterol 28 L, Cholesterol/HDL Ratio 6.6 H I & O for Last 24 hours: Intake & Output 01/21/24 01/22/24 01/23/24 01/24/24 23:59 23:59 23:59 23:59 Intake Total 0 / 0 Output Total 0 / 0 Balance 0 / 0 Weight 142.428 kg 139.962 kg Constitutional Constitutional: no acute distress and morbidly obese *Routine HEENT Exam Head: Present normocephalic and atraumatic ENT: Present mucous membranes moist *Routine Neck Exam Neck: Present supple, full ROM and normal carotid upstroke; Absent JVD, carotid bruit or lymphadenopathy *Routine Respiratory Exam Respiratory: Present CTA bilaterally, normal respiratory effort, able to speak in complete sentences and symmetric chest movement *Routine Cardiovascular Exam Cardiovascular: Present RRR, Normal S1 and Normal S2; Absent murmur or gallop *Routine Abdominal Exam Abdominal: Present soft and normoactive bowel sounds; Absent tenderness, distended or organomegaly *Routine Rectal Exam Patient deferred: visual exam *Routine Exam Patient deferred: penile exam *Routine Extremities Exam Extremities: Present full ROM, pulses intact and normal capillary refill; Absent cyanosis, clubbing or edema *Routine Skin Exam Skin: Present intact and warm; Absent erythema *Routine Neurological Exam Neurological: Present alert, oriented X3, CN II-XII intact and moving all extremities; Absent sensory deficit, motor deficit or altered mental status Routine Psychiatric Exam Psychiatric: Present normal affect Results Data Completed and Pending Labs on day of discharge: Labs from last 24 hours 01/24/24 01/23/24 05:48 22:52 WBC 7.9 9.0 RBC 4.68 4.91 Hgb 13.5 L 14.0 L Hct 41.3 L 43.1 MCV 88.2 87.7 MCH 28.9 28.6 MCHC 32.8 32.6 RDW 13.8 13.6 Plt Count 240 233 MPV 8.1 7.5 Neut % (Auto) 47.3 48.7 Lymph % (Auto) 39.3 38.7 [place] % (Auto) 5.9 5.3 Eos % (Auto) 5.9 5.4 Baso % (Auto) 1.6 1.9 Neut # (Auto) 3.7 4.4 Lymph # (Auto) 3.1 3.5 [place] # (Auto) 0.5 0.5 Eos # (Auto) 0.5 H 0.5 H Baso # (Auto) 0.1 0.2 Sodium 140 141 Potassium 3.7 3.5 Chloride 108 H 108 H Carbon Dioxide 31 H 32 H Anion Gap 4.7 L 4.5 L BUN 18 19 Creatinine 1.20 1.30 H Estimated Creat Clear 74 71 Estimated GFR 64 58 L Est GFR ( Amer) 77 70 Glucose 116 H 121 H Hemoglobin A1c 6.0 Calcium 8.8 9.3 Total Bilirubin 0.9 AST 39 ALT 31 Alkaline Phosphatase 90 Troponin I < 0.01 < 0.01 Total Protein 7.0 Albumin 4.0 Globulin 3.0 Albumin/Globulin Ratio 1.3 Triglycerides 138 Cholesterol 185 LDL Cholesterol Direct 106.58 VLDL Cholesterol 28 HDL Cholesterol 28 L Cholesterol/HDL Ratio 6.6 H DS: Diagnosis Discharge Diagnosis (1) Unstable angina: Status: Acute Code(s): I20.0 - Unstable angina (2) Abnormal cardiovascular stress test: Status: Acute Code(s): R94.39 - Abnormal result of other cardiovascular function study (3) Dyspnea: Status: Acute Code(s): R06.00 - Dyspnea, unspecified Qualifiers: Dyspnea type: dyspnea on exertion Qualified Code(s): R06.09 - Other forms of dyspnea (4) HTN (hypertension): Status: Acute Code(s): I10 - Essential (primary) hypertension Qualifiers: Hypertension type: primary hypertension Qualified Code(s): I10 - Essential (primary) hypertension (5) HLD (hyperlipidemia): Status: Acute Code(s): E78.5 - Hyperlipidemia, unspecified Qualifiers: Hyperlipidemia type: unspecified Qualified Code(s): E78.5 - Hyperlipidemia, unspecified (6) Sleep apnea: Status: Acute Code(s): G47.30 - Sleep apnea, unspecified Qualifiers: Sleep apnea type: unspecified type Qualified Code(s): G47.30 - Sleep apnea, unspecified Meds Home Medications and Allergies Home Medications Medication Instructions Recorded Confirmed Type losartan 50 mg tablet 50 mg PO DAILY 12/18/23 01/24/24 History sildenafil 50 mg tablet 50 mg PO NEEDED PRN Sexual 12/18/23 01/24/24 History Activity aspirin 81 mg chewable tablet 81 mg PO DAILY 30 days #30 tabs 01/24/24 Rx atorvastatin 40 mg tablet 40 mg PO HS 30 days #30 tabs 01/24/24 Rx furosemide 80 mg tablet 80 mg PO DAILY 30 days #30 tabs 01/24/24 Rx metoprolol succinate 25 mg 25 mg PO DAILY 01/24/24 01/24/24 History tablet,extended release 24 hr spironolactone 50 mg tablet 100 mg (2 x 50 mg) PO DAILY 30 01/24/24 Rx days #60 tabs New Prescriptions to Start Prescriptions: Cesar Wolff atorvastatin Cesar Davis furosemide Cesar Davis spironolactone Cesar Davis Allergies Allergy/AdvReac Type Severity Reaction Status Date / Time Poultry Allergy Severe Swelling Verified 01/24/24 00:40 of Lip/Tongue/Throat Discharge Plan Disposition Patient Disposition: Home, Self-Care Condition: Fair Follow up Plan Follow up with: Aemlia Lang APRN [Primary Care Provider] - 01/31/24 9:20 am Fidel Welch MD [Staff Physician] - 02/04/24 2:30 pm Prescriptions/Medication Reconciliation: New aspirin 81 mg Tablet,Chewable 81 mg PO DAILY 30 Days Qty: 30 0RF atorvastatin 40 mg Tablet 40 mg PO HS 30 Days Qty: 30 0RF furosemide 80 mg Tablet 80 mg PO DAILY 30 Days Qty: 30 0RF spironolactone 50 mg tablet 100 mg PO DAILY 30 Days Qty: 60 0RF Continued losartan 50 mg tablet 50 mg PO DAILY sildenafil 50 mg tablet 50 mg PO NEEDED PRN (Reason: Sexual Activity) Rx Instructions: administer 30 minutes to 4 hours before activity metoprolol succinate 25 mg tablet extended release 24 hr 25 mg PO DAILY Discontinued hydrochlorothiazide 25 mg tablet 25 mg PO DAILY Problem Reconciliation Problems Reviewed?: Yes Patient Discharge Instructions ACTIVITY: Continue current activity DIET: continue same diet Stand Alone Forms: H Work Release, Post-Op Work/School Release Patient Instructions: DI for Angina Providers Primary Care Provider: Amelia Lang Admit Provider: Cesar Davis Attending Provider: Cesar Davis
[2024-01-24] MEDS: SPIRONOLACTONE 25MG TABLET 100 MG PO (16:13)
[2024-01-24] MEDS: FUROSEMIDE 80 MG TABLET PO (16:14)
--- NOTE | 2024-01-24 18:03 | PC.NURSE ---
Patient back from Heart Cath. VSS stable, denies pain, SOA; family at bedside. No edema noted. Per Dr. Ryan alexander. patient to be discharged between 7-8pm if no complications - bleeding from cath insertion site, soa, chest pain, VSS. Patient verb understanding.
--- NOTE | 2024-01-27 13:40 | SW/DCPLANNER ---
Follow up phone call: patient stated that he is doing well at home and does not have any needs at this time. Patient is aware of his follow up appointments for Omaira Lang and Cardiology. Patient does not have any further needs/questions at this time.
== END 2024-01-24 19:45 | disposition home or self-care (01) ==
LOC: ER 23:02 → 2ND 01-24
PROVIDERS: Internal Medicine; Nurse Practitioner Acute Care; Admitting Provider Internal Medicine Adolescent Medicine; Emergency Provider Emergency Medicine; PCP Nurse Practitioner Family; Visit Provider Internal Medicine Adolescent Medicine
DX: R07.9 Chest pain, unspecified (principal); I20.0 Unstable angina; R94.39 Abnormal result of other cardiovascular function study; I10 Essential (primary) hypertension; E78.5 Hyperlipidemia, unspecified; E66.01 Morbid (severe) obesity due to excess calories; G47.30 Sleep apnea, unspecified; Z68.41 Body mass index [BMI] 40.0-44.9, adult; R06.09 Other forms of dyspnea
CPT/HCPCS: 36415; 71045; 80048; 80053; 80061; 83036; 84484; 85025; 93005; 93270; 93458; 99152; 99285; C1725; C1760; C1769; G0378; J1644; Q9967